=== PATIENT | female | born 2005 | race African-American/Black ===

== ENCOUNTER 2025-05-15 17:38 | Emergency (ER) | payer MEDICAID ==
[~2025-05-15] VITALS: Ht 172.7 cm; Wt 114.0 kg
[2025-05-15 17:40] VITALS: O2SAT 99
[2025-05-15 18:53] LABS: BASOPHILS % 0.7 % (0.0-2.0); EOSINOPHILS % 0.7 % (0.0-5.0); HEMATOCRIT. 40.5 % (36.0-48.0); HEMOGLOBIN. 13.9 g/dL (12.0-16.0); LYMPHOCYTES % 18.3 % (20.0-50.0); MEAN PLATELET VOLUME 8.2 fl (7.4-10.4); MONOCYTES % 6.1 % (2.0-8.0); NEUTROPHILS % 74.2 % (40.0-76.0); PLATELET 302 x1000/uL (130-400); RED BLOOD CELL COUNT 4.75 mill/uL (4.2-5.4); RED CELL DISTRIBUTION WIDTH 13.9 % (11.6-14.6)
[2025-05-15 19:03] LABS: CREATININE 0.8 mg/dL (0.6-1.0); TROPONIN I HIGH SENSITIVITY < 4 ng/L (3.0-34); UREA NITROGEN BLOOD 10 mg/dL (9-23)
[2025-05-15 19:04] LABS: ETHANOL BLOOD < 10 mg/dL (<10)
[2025-05-15 19:07] LABS: HCG SCREEN NEGATIVE
[2025-05-15 21:47] LABS: TROPONIN I HIGH SENSITIVITY < 4 ng/L (3.0-34)
[2025-05-15 22:17] VITALS: BP 115/52; PULSE 76; RESP 12; TEMP 36.9; O2SAT 99
== END 2025-05-15 22:44 | disposition home or self-care (01) ==
LOC: ER 17:38
DX: R00.2 Palpitations (principal); E05.90 Thyrotoxicosis, unspecified without thyrotoxic crisis or storm; I24.9 Acute ischemic heart disease, unspecified; Z86.79 Personal history of other diseases of the circulatory system; Z79.899 Other long term (current) drug therapy
CPT/HCPCS: 36415; 71045; 80048; 80320; 84484; 84703; 85025; 93005; 99285; G0480